=== PATIENT | male | born 1985 | race Caucasian/White ===

== ENCOUNTER 2020-05-27 10:40 | Emergency (ER) | payer SELFPAY ==
--- OUTSIDE RECORDS SUMMARY | 2020-05-27 10:44 | XMS REPORT | Continuity of Care Document ---
:1985 Author Organization [facility] t Address [address] [place] [address] Care Team Providers Name Role Phone Lab, Magno Rodney I Attending Clinician Unavailable Rosalinda Sullivan Attending Clinician Payers Payer Name Policy Type Policy Number Effective Date Expiration Date S ource Problems Condition Condition Condition Status Onset Resolution Last Treating Co mments Source Name Details Category Date Date Treatment Clinician Date PELVIC Diagnosis Active 2013-022014-02-02 Mem [facility]ria PAIN, FALL 03-26 11:22:00 l PELVIC 00:00: [place] PAIN, FALL 00 Active 01/23/2014 [facility] PAIN Diagnosis Active 2011-04-14 Mem[facility] 04-14 21:10:00 l CHEST 17:20: [place] PAIN 00 Active 04/14/2011 [facility] History of Past Illness Condition Condition Condition Status Onset Resolution Last Treating Co mments Source Name Details Category Date Date Treatment Clinician Date Discharge Problem 2013-022014-01-26 2014-01-26 [facility] Diagnosis: 2- 03:28:56 03:28:56 l Bruise, 06:00: [place] trunk Discharge 00 Diagnosis: Bruise, trunk 01/23/2014 01/26/2014 [facility] Allergies, Adverse Reactions, Alerts Allergy Allergy Status Severity Reaction(s) Onset Inactive Treating Comm ents Source Name Type Date Date Clinician [place] DA Active NE 2018- [facility] 2-14 [place] 00:00: e 00 [facility] No Known DA Active U [facility] 2-14 [place] Intolera 00:00: e nces 00 [facility] [place] DA Active NE 2015-02 [facility] 2- Clear 00:00: Marie 00 [facility] No Known DA Active U 2015-02 [facility] Drug 04-17 Clear Intolera 00:00: Marie nces 00 [facility] Social History Smoking Status Start Date Stop Date Source Social History [facility] Medications Ordered Filled Start Stop Current Ordering Indication Dosage Frequency Signature Comments Components Source Medication Medication Date Date Medication? Clinician (SIG) Name Name Acetaminoph 2013-02 Yes 1 - 2 tab, Memoria en 300 MG / 2-06 PO, Q4H, l Codeine 02:29: Pain, # 20 [facility] Phosphate 00 tab, 0 30 MG Oral Refill(s) Tablet [Tylenol with Codeine #3] naproxen Yes Yusef 500 mg, 1 M emoria 500 mg oral 2-25 Peña tab, PO, l enteric 04:35: Tsai BID, 20 Tate n coated 42 tab, tablet Substituti on Allowed, ECTAB Saline No Yusef 5 ml, Memoria Flush 0.9% 2-25 Peña Route: l 01:21: Tsai IVP, Drug Narciso 00 Form: INJ, PRN, PRN Line Flush, Start date: 04/14/11 19:21:00, Duration: 24 hr, Stop date: 04/15/11 19:20:00 Vital Signs Vital Name Observation Time Observation Value Comments Source Temperature Oral (F) 2014-01-24 02:53:00 98.8 F [facility] Diastolic (mm Hg) 2014-01-24 02:53:00 Mem o[facility] [place] Heart Rate 2014-01-24 02:53:00 [facility] [place] Systolic (mm Hg) 2014-01-24 02:53:00 [place] rial [place] Respitory Rate 2014-01-24 02:53:00 Memori al [place] Diastolic (mm Hg) 2014-01-24 00:31:00 Mem orial [place] Systolic (mm Hg) 2014-01-24 00:31:00 [place] rial [place] Heart Rate 2014-01-24 00:31:00 [facility] Respitory Rate 2014-01-24 00:31:00 Memori al [place] Systolic (mm Hg) 2014-01-23 23:25:00 [place] rial [place] Diastolic (mm Hg) 2014-01-23 23:25:00 Mem o[facility] [place] Weight 2014-01-23 23:25:00 [facility] [place] Height 2014-01-23 23:25:00 180.34 cm [facility] BMI Calculated 2014-01-23 23:25:00 [facility] [place] Temperature Oral (F) 2014-01-23 23:25:00 98.9 F [facility] Respitory Rate 2014-01-23 23:25:00 [facility] al [place] Heart Rate 2014-01-23 23:25:00 [facility] Weight 2011-04-15 00:29:00 [facility] Height 2011-04-15 00:29:00 182.88 cm [facility] [place] Procedures Procedure Date / Time Performed Performing Clinician [facility] e ACL - Reconstruction of [facility] anterior cruciate ligament Hernia repair [facility] Encounters Start End Encounter Admission Attending Care Care Encounter Source Date/Time Date/Time Type Type Clinicians Facility Department ID 2020-05-19 2020-05-19 Laboratory Lab, [facility] [id number] 16:57:21 17:17:21 Only Fam [facility] [id number] [place] [id number] Professio [phone] nal [facility] Office [address] 2020-03-10 2020-03-10 Laboratory Lab, [facility] [id number] 13:41:06 14:01:06 Only Fam [facility] I Health [id number] [place] [id number] Professio [phone] [place] [address] [address] 2020-02-29 2020-02-29 Laboratory Lab, [facility] [id number] 10:50:31 11:10:31 Only Fam Pob I Health [id number] [place] 4.2.7.2.686 [facility] [phone] nal 044 [address] 2017-03-20 2017-03-20 Outpatient [facility] [id number] 18:40:00 18:40:00 00 2014-01-23 2014-01-23 Outpatient [facility] [id number] 17:21:00 20:54:00 Naren Naser 02 Yousef Results Test Description Test Time Test Comments Results Result Comments Source CBC W/AUTO DIFF 2018-04-16 10:07:00 Test Item Value Reference Range Interpretation Comme nts WHITE BLOOD CELL (test code = WBC) 8.0 K/mm3 4.5-12.5 N RED BLOOD CELL (test code = RBC) 4.98 mill/mm3 4.0-5.8 N HEMOGLOBIN (test code = HGB) 15.1 gram/dL 13.0-17.5 N HEMATOCRIT (test code = HCT) 47.0 % 42.0-52.0 N MEAN CELL VOLUME (test code = MCV) 94.4 fL 80-98 N MEAN CELL HGB (test code = MCH) 30.3 picogram 27.0-33.0 N MEAN CELL HGB CONCETRATION (test code = MCHC) 32.1 gram/dL 33.0-36. 0 L RED CELL DISTRIBUTION WIDTH (test code = RDW) 12.1 % 11.6-16. 2 N RED CELL DISTRIBUTION WIDTH SD (test code = RDW-SD) 42.0 fL 37 .0-51.0 N PLATELET COUNT (test code = PLT) 237 K/mm3 150-450 N MEAN PLATELET VOLUME (test code = MPV) 10.9 fL 6.7-11.0 N NEUTROPHIL % (test code = NT%) 57.8 % 39.0-69.0 N IMMATURE GRANULOCYTE % (test code = IG%) 0.3 % 0.0-5.0 N LYMPHOCYTE % (test code = LY%) 30.2 % 25.0-55.0 N MONOCYTE % (test code = MO%) 8.2 % 0.0-10.0 N EOSINOPHIL % (test code = EO%) 2.4 % 0.0-5.0 N BASOPHIL % (test code = BA%) 1.1 % 0.0-1.0 H NUCLEATED RBC % (test code = NRBC%) 0.0 % 0-0 N NEUTROPHIL # (test code = NT#) 4.61 K/mm3 1.8-7.7 N IMMATURE GRANULOCYTE # (test code = IG#) 0.02 x10 3/uL 0-0.03 N LYMPHOCYTE # (test code = LY#) 2.41 K/mm3 1.0-5.0 N MONOCYTE # (test code = MO#) 0.65 K/mm3 0-0.8 N EOSINOPHIL # (test code = EO#) 0.19 K/mm3 0.0-0.5 N BASOPHIL # (test code = BA#) 0.09 K/mm3 0.0-0.2 N NUCLEATED RBC # (test code = NRBC#) 0.00 K/mm3 0.0-0.1 N MANUAL DIFF REQUIRED (test code = MDIFF) NO CBC W/AUTO [id number] 10:04:00 Test Item Value Reference Range Interpretation Comments WHITE BLOOD CELL (test code = K/mm3 4.5-12.5 WBC) RED BLOOD CELL (test code = RBC) mill/mm3 4.0-5.8 HEMOGLOBIN (test code = HGB) 15.1 gram/dL 13.0-17.5 N HEMATOCRIT (test code = HCT) 47.0 % 42.0-52.0 N MEAN CELL VOLUME (test code = fL 80-98 MCV) MEAN CELL HGB (test code = MCH) picogram 27.0-33.0 MEAN CELL HGB CONCETRATION (test gram/dL 33.0-36.0 code = MCHC) RED CELL DISTRIBUTION WIDTH % 11.6-16.2 (test code = RDW) RED CELL DISTRIBUTION WIDTH SD fL 37.0-51.0 (test code = RDW-SD) PLATELET COUNT (test code = PLT) K/mm3 150-450 MEAN PLATELET VOLUME (test code fL 6.7-11.0 = MPV) NEUTROPHIL % (test code = NT%) % 39.0-69.0 IMMATURE GRANULOCYTE % (test % 0.0-5.0 code = IG%) LYMPHOCYTE % (test code = LY%) % 25.0-55.0 MONOCYTE % (test code = MO%) % 0.0-10.0 EOSINOPHIL % (test code = EO%) % 0.0-5.0 BASOPHIL % (test code = BA%) % 0.0-1.0 NEUTROPHIL # (test code = NT#) K/mm3 1.8-7.7 LYMPHOCYTE # (test code = LY#) K/mm3 1.0-5.0 MONOCYTE # (test code = MO#) K/mm3 0-0.8 EOSINOPHIL # (test code = EO#) K/mm3 0.0-0.5 BASOPHIL # (test code = BA#) K/mm3 0.0-0.2 - CT ABD PELVIS [id number] 20:05:00 Name: GET ADAM [facility] : 1985 Age/S: 32 / M [address] [place] [address] Unit #: [id number] Loc: Jose De Jesus [id number] Phys: Mini Hicks NP Acct: [id number] Dis Date: Status: REG ER PHONE #: [phone] Exam Date: 04/04/20181924 FAX #: [phone] Reason: Severe LLQ abd pain, known hernia EXAMS: CPTCODE: [id number] CT ABD PELVIS W/CONT [address] CT ABDOMEN AND PELVIS WITH CONTRAST INDICATION: Severe LLQ abd pain, known hernia. TECHNIQUE: 100 mL Isovue-300 Intravenous contrast was administered followed by CT imaging of the abdomen and pelvis with axial, coronal and sagittal reconstructions. Radiation DLP 719 mGy-cm. COMPARISONS: Scrotal ultrasound 01/24/2014. Pelvis CT report without images dated 03/25/2018 FINDINGS: There is no acute osseous fracture or dislocation. There is mild gynecomastia. There is a small fat filled, noninflamed umbilical hernia. There is a tiny fat filled, noninflamed right inguinal hernia. There is a small fat filled, noninflamed left inguinal hernia. There are surgical changes of prior leftinguinal hernia repair. The aorta reveals no aneurysm or acute process. The inferior vena cava reveals no acute process. There is atelectasis within the dependent lungs. There is no acute hepatic process. The gallbladder and bile ducts reveal no acute process. The pancreas reveals no acute process. The spleen reveals no acute process. The adrenal glands reveal no acute process or mass. Thereare 3 small benign cysts in the inferior pole left kidney, the largest measures 0.8 cm. Thereare 2 benign cysts in the right kidney, the largest measures 1 cm in the midpole. No additional follow-up is required for these lesions. There is no acute renal process. The urinary bladder reveals no acute process. There is no acute reproductive structure abnormality. There is no intra-abdominal free fluid. There is no intra-abdominal PAGE 1 Signed Report (CONTINUED) Name: GET ADAM [facility] : 1985 Age/S: 32 / M [address] [place] [address] Blvd Unit #: [id number] Loc: [place] [address] Phys: Mini Hicks BOTTOM CAGER Acct: [id number] Dis Date:Status: REG ER PHONE #: [phone] Exam Date: 04/04/20181924 FAX #: [phone] Reason: Severe LLQ abd pain, known hernia EXAMS: CPT CODE: [id number] CT ABD PELVIS W/[place] [address] <Continued> free gas. There are several mesenteric lymph nodes measuring less than a centimeter caliber. There is a 1.1 x 1.4 cm mildly prominent right lower quadrant mesenteric lymph node on axial image 73. There scottie 1.2 x 1.6 cm lymph node in the central mesentery on axial image 63. There is no bowel obstruction. There is no bowel mucosal thickening or inflammation. There is mild nonacute colonic diverticulosis. There is no evidence of acute appendicitis. IMPRESSION: 1. There are several nonenlarged mesenteric lymph nodes that measure less than a centimeter short axis. There are 2 mildly prominent lymph nodes in the central mesentery and right lower quadrant mesentery, the largest measures 1.2 x 1.6 cm. The findings are nonspecific but could represent mesenteric adenitis or be reactive. A lymphoproliferative process is not entirely excluded. 2. There is a tiny fat filled, galo nflamed right inguinal hernia. There is a small fat filled, noninflamed left inguinal hernia. There are surgical changes of prior left inguinal hernia repair. 3. There is mild nonacute sigmoid and descending colonic diverticulosis. at 2005 Reported and signed by: Sahil Fisher D.O. CC: Mini Hicks NP Technologist:Maxwell Garcias, (R) CTDI: DLP: Trnscb Date/Time: 04/04/2018 (2004) [id number] Orig Print D/T: S: 04/04/2018 (2007) CTDI: DLP: PAGE 2 Signed Report HEPATIC FUNCTION [id number] 19:33:00 Test Item Value Reference Range Interpretation Comments TOTAL PROTEIN (test code = PROT) 7.9 g/dL 6.4-8.2 N ALBUMIN (test code = ALB) 3.90 g/dL 3.4-5.0 N BILIRUBIN TOTAL (test code = 0.30 mg/dL 0.0-1.0 N BILT) BILIRUBIN DIRECT (test code = < 0.10 MG/DL 0.0-0.30 N BILD) BILIRUBIN INDIRECT (test code = 0.20 MG/DL BILIND) SGOT/AST (test code = AST) 26 IUnit/L 15-37 N SGPT/ALT (test code = ALT) 40 IUnit/L 15-65 N ALKALINE PHOSPHATASE TOTAL (test 84 IUnit/L 20-125 N code = ALKP) [id number] 19:33:00 Test Item Value Reference Range Interpretation Comments LIPASE (test code = LIP) 136 IUnit/L 73-393 N CBC W/AUTO [id number] 19:29:00 Test Item Value Reference Range Interpretation Comments WHITE BLOOD CELL (test code = 9.82 x10 3/uL 4.5-11.0 N WBC) RED BLOOD CELL (test code = 4.95 x10 6/uL 4.00-5.60 N RBC) HEMOGLOBIN (test code = HGB) 15.5 g/dL 12.5-16.9 N HEMATOCRIT (test code = HCT) 47.9 % 37.5-50.7 N MEAN CELL VOLUME (test code = 96.8 fL 81.0-99.0 N MCV) MEAN CELL HGB (test code = MCH) 31.3 pg 27.0-33.0 N MEAN CELL HGB CONCETRATION 32.4 g/dL 33.0-37.0 L (test code = MCHC) RED CELL DISTRIBUTION WIDTH CV 11.9 % 11.5-14.5 N (test code = RDW) RED CELL DISTRIBUTION WIDTH SD 42.7 fL 37.0-54.0 N (test code = RDW-SD) PLATELET COUNT (test code = 275 x10 3/uL 150-400 N PLT) MEAN PLATELET VOLUME (test code 11.4 fL 7.0-9.0 H = MPV) NEUTROPHIL % (test code = NT%) 64.1 % 56.0-77.0 N IMMATURE GRANULOCYTE % (test 0.4 % 0.0-2.0 N code = IG%) LYMPHOCYTE % (test code = LY%) 25.1 % 14.0-32.0 N MONOCYTE % (test code = MO%) 7.5 % 4.8-9.0 N EOSINOPHIL % (test code = EO%) 2.1 % 0.3-3.7 N BASOPHIL % (test code = BA%) 0.8 % 0.0-2.0 N NUCLEATED RBC % (test code = 0.0 % 0-0 N NRBC%) NEUTROPHIL # (test code = NT#) 6.29 x10 3/uL 2.0-7.6 N IMMATURE GRANULOCYTE # (test 0.04 x10 3/uL 0.00-0.03 H code = IG#) LYMPHOCYTE # (test code = LY#) 2.46 x10 3/uL 1.0-3.8 N MONOCYTE # (test code = MO#) 0.74 x10 3/uL 0.1-0.8 N EOSINOPHIL # (test code = EO#) 0.21 x10 3/uL 0.0-0.2 H BASOPHIL # (test code = BA#) 0.08 x10 3/uL 0.0-0.2 N NUCLEATED RBC # (test code = 0.00 x10 3/uL 0.0-0.1 N NRBC#) MANUAL DIFF REQUIRED (test code NO = MDIFF) URINALYSIS [id number] 19:24:00 Test Item Value Reference Range Interpretation Comments UA COLOR (test code = COLU) YELLOW YEL/STRAW UA APPEARANCE (test code = SL CLOUDY CLEAR APPU) UA GLUCOSE DIPSTICK (test code NEGATIVE NEGATIVE = DGLUU) UA BILIRUBIN DIPSTICK (test NEGATIVE NEGATIVE code = BILU) UA KETONE DIPSTICK (test code NEGATIVE NEGATIVE = KETU) UA SPECIFIC GRAVITY (test code 1.023 1.005-1.030 N = SGU) UA BLOOD DIPSTICK (test code = NEGATIVE NEGATIVE JAY) UA PH DIPSTICK (test code = 5.0 5.0-7.0 N LEANDRO) UA PROTEIN DIPSTICK (test code NEGATIVE NEGATIVE = PROU) UA UROBILINIOGEN DIPSTICK 2.0 mg/dL 0.2-1.0 A (test code = URO) UA NITRITE DIPSTICK (test code NEGATIVE NEGATIVE = SWETHA) UA LEUKOCYTE ESTERASE DIPSTICK NEGATIVE NEGATIVE (test code = LEUU) UA WBC (test code = WBCU) 4-9 WBC/HPF 0-3 A UA RBC (test code = RBCU) 4-10 RBC/HPF 0-3 UA BACTERIA (test code = BACU) NONE SEEN /HPF NONE SEEN UA SQUAMOUS CELLS (test code = 0-5 /HPF NONE SEEN SQU) UA MUCUS (test code = MUCU) TRACE /LPF NONE SEEN COMMENTS: Clean CatchCHEMISTRY 8 [id number] 18:33:00 Test Item Value Reference Range Interpretation Comments ISTAT-SODIUM (test code = NAP) MMOL/L 134-147 ISTAT-POTASSIUM (test code = KP) MMOL/L 3.4-5.0 ISTAT-CHLORIDE (test code = CLP) MMOL/L 100-108 ISTAT CARBON DIOXIDE (test code = mmol/L 21-33 N ISTAT-CO2) ISTAT CALCIUM IONIZED (test code = MG/DL 1.12-1.32 ISTAT-CLAIRE) ISTAT-GLUCOSE (test code = GLUP) MG/DL 70-110 N ISTAT-BUN (test code = BUNP) MG/DL 7-18 N BEDSIDE CREATININE (test code = MG/DL 0.6-1.3 N CREATBED) GLOMERULAR FILTRATION RATE POC 91 ML/MIN (test code = GFRBED) CHEMISTRY 8 [id number] 18:33:00 Test Item Value Reference Range Interpretation Comments ISTAT-SODIUM (test 143 MMOL/L 134-147 N code = NAP) ISTAT-POTASSIUM (test 4.0 MMOL/L 3.4-5.0 N code = KP) ISTAT-CHLORIDE (test 105 MMOL/L 100-108 N Perform ed by code = CLP) certified opera tor at [facility] ISTAT CARBON DIOXIDE 29.0 mmol/L 21-33 N (test code = ISTAT-CO2) ISTAT CALCIUM IONIZED 1.21 MG/DL 1.12-1.32 N (test code = ISTAT-CLAIRE) ISTAT-GLUCOSE (test 102 MG/DL 70-110 N code = GLUP) ISTAT-BUN (test code = 15 MG/DL 7-18 N BUNP) BEDSIDE CREATININE 1.0 MG/DL 0.6-1.3 N (test code = CREATBED) GLOMERULAR FILTRATION 91 ML/MIN RATE POC (test code = GFRBED) [id number] 00:35:0011.9[facility] LwypccbZIAWGAMKCIHQ9586-00-70 00:35:87078Dxhbufyj YupedxsQRCVJICHPDWF5856-56-39 00:35:003.9[facility] PCSDPWFGGSQW4663-64-47 00:35:01263Obitqdfa FnftugiFSPIEODDEDSG8404-85-73 00:35:60838Ragtuzul EesaxqgBMBYMMCWHGRH7170-23-44 00:35:0024[facility] LDDFTGYHHPSY0023-19-83 00:35:009.1[facility] LcaphsoFOHSXJXWQZKK8496-97-75 00:35:0012[facility] QapwcokHXWGZRGWMINC8492-35-42 00:35:000.9[facility] RJJKTGSDREWW6115-41-88 00:35:0093[facility] ChhjqjdVXWKHWBRNT2110-68-56 00:35:00 34.6[facility] KtbmceeOQMEANJPMY9558-05-60 00:35:0012.5[facility] 2014-01-24 00:35:009.5[facility] BpojgkrUVQVJSOPXR0279-99-48 00:35:95387Tlpjvbbl TpdmalrBTZKPJYMIY8946-87-57 00:35:0090.6[facility] QliadhlSYSEFLLFVZ1672-76-19 00:35:00 Test Item Value Reference Range Interpretation Comments MCH (test code = MCH) 31.3 pg 27.0-31.0 [facility] DduwjfyHTBJIOZRXU7776-19-84 00:35:0015.4[facility] 2014-01-24 00:35:0044.4[facility] MisscbaLCFBOAAICL5476-10-16 00:35:004.91[facility] NzhmrxzYVGNCGCLHE6862-20-87 00:35:0010.1[facility] KhuumybJAVUPVSEMU0240-57-00 00:35:002.5[facility] ObxtbyrQRNECUYNBU1563-22-59 00:35:006.8[facility] SNNITUSWDP6102-95-53 00:35:000.6[facility] WcihwnwLHMOUOMQHI8128-31-85 00:35:000.1 [facility] RjvrdijODADYLJYNE4196-89-84 00:35:000.1[facility] 2014-01-24 00:35:000.9[facility] SozsqoyLSWSZSHIYL3807-18-86 00:35:0067.0[facility] LvsdbcbLVUEXRIFJT7087-22-56 00:35:001.4[facility] RxjftlnYXRLKKXYSU6339-66-39 00:35:0024.7[facility] WabvejtAZNVILKSGU3181-58-30 00:35:006.0[facility] HDGGJGRYR4837-55-36 02:10:009.1[facility] YuezlwaCOHYRQPTZ9959-60-86 02:10:008.3 [facility] JraqvyyKJTEDZEFH3380-26-83 02:10:0014[facility]Y 2011-04-15 02:10:004.3[facility] XzkfetiQOOBVZTYN7256-64-23 02:10:0041[facility] XtpgibfIDXZILAWO3607-89-17 02:10:000.5[facility] JypkeycQVGVHXGNZ0877-17-72 02:10:0076[facility] FpqrlqwBGXDCZVVZ1423-48-79 02:10:0088[facility] HQPUKSWXE4730-99-94 02:10:0011[facility] QqcfoufWSQOARATY5209-02-91 02:10:96198 [facility] SbekcnjLOSWZFBTK1906-66-71 02:10:0026[facility]ann[facility]Y 2011-04-15 02:10:001.0[facility] ZvetqjoMOGUASPNL7283-25-88 02:10:004.1[facility] YakhsfeLNREZVFCT6341-24-52 02:10:75323Fvcurdwa UoapfncEIMDLZFXI5993-14-00 02:10:004.0[facility] JxcvmduZUUAJKCEH9899-52-19 02:10:0011[facility] IRUMAXNIE5339-41-69 02:10:001.1[facility] EoiaagqFMIYMIXTH7554-23-32 02:10:0012.1 [facility] HudcollEIXHZZRFD7633-82-33 02:10:00<0.02[facility]ann[facility]STRY 2011-04-15 02:10:003.7[facility] JrvnxroYGLYWNCBAF7835-17-88 02:10:0015.4[facility] CpbqfxpDLXNPKKHWH6820-22-43 02:10:0044.2[facility] NesdoacRHIXMWDDYO0281-84-87 02:10:007.6[facility] BwiobtlFTHMSYTBAS0259-51-53 02:10:004.88[facility] OVCYLIKZRM1217-54-30 02:10:0012.2[facility] UwwmpgdMLBUXYUSZC7607-02-03 02:10:00 265[facility] MbnjimaXCHPQLREBK2281-11-58 02:10:00 Test Item Value Reference Range Interpretation Comments MCH (test code = MCH) 31.6 pg 27.0-31.0 H [facility] RoyzgwqCJTTIJZQYM9898-23-44 02:10:0034.9[facility]ann[facility]OLOGY 2011-04-15 02:10:0090.6[facility] FcueckuOFSZZSOTDT6024-76-87 02:10:009.0[facility] JokrvinYOEWDRWBMI0254-64-24 02:10:000.23[facility] MojvytkQDTIPFWPDL4732-97-76 02:10:004.emorial RzuiaalOTQCRISDAE7605-01-36 02:10:002.2[facility] QOQUAAXRWP8957-46-97 02:10:000.6[facility] PjaxyzbCBDRAUPGEI8211-58-04 02:10:000.1 [facility] WgizoawGSIWIEHOIT0486-66-39 02:10:000.1[facility]ann[facility]OLOGY 2011-04-15 02:10:0029.3[facility] SigktfeYBWHPJUZQT1623-27-24 02:10:0060.6[facility] ZcrzgzfYYDMKJYFGW4357-41-10 02:10:000.8[facility] NsmdlkjUZGULDUWIU0112-71-35 02:10:001.9[facility] HqqjmagALXQMZPIPR3381-53-72 02:10:007.4[facility]
--- NOTE | 2020-05-27 11:40 | RAD REPORT ---
EXAM DESCRIPTION: RAD - Elbow Left 3 View - 05/27/2020 11:29 am CLINICAL HISTORY: Left elbow pain status post trauma FINDINGS: Mildly displaced fracture of the radial head. No dislocation
--- NOTE | 2020-05-27 11:40 | RAD REPORT ---
EXAM DESCRIPTION: RAD - Wrist Left 3 View - 05/27/2020 11:33 am CLINICAL HISTORY: Left wrist pain status post injury FINDINGS: No fracture or dislocation is seen. If the patient continues to have symptoms to suggest an occult fracture then a followup plain film se sugar in 7 days would be recommended
--- NOTE | 2020-05-27 13:28 | EDPHYS ---
Physician Documentation [facility] Name: Reginald Noe Age: 34 yrs Sex: Male : 1985 Arrival Date: 05/27/2020 Time: 10:41 Bed 27 Private MD: ED Physician Michael Robbins HPI: 05/27 13:21 This 34 yrs old Male presents to ER via Ambulatory with complaints of Elbow jr8 Injury, Fall Injury. 13:21 The patient or guardian complains of decreased range of motion, pain. The complaints jr8 affect the left elbow. Context: The problem was sustained outdoors, resulted from a fall, on an outstretched hand. Onset: The symptoms/episode began/occurred acutely, today. Treatment prior to arrival includes: no previous treatment. Modifying factors: The symptoms are alleviated by nothing. the symptoms are aggravated by movement. Associated signs and symptoms: The patient has no apparent associated signs or symptoms. Severity of symptoms: At their worst the symptoms were moderate, in the emergency department the symptoms are unchanged. The patient has not experienced similar symptoms in the past. The patient has not recently seen a physician. Patient tripped outside falling on outstretched hand. Pain to elbow and wrist on left side since incident . Historical: - Allergies: 11:02 No Known Allergies; aa5 - Home Meds: 11:02 None [Active]; aa5 - PMHx: 11:02 None; aa5 - PSHx: 11:02 Hernia repair; L ACL; aa5 - Immunization history:: Last tetanus immunization: up to date. - Social history:: Smoking status: Patient denies any tobacco usage or history of. ROS: 13:21 Eyes: Negative for injury, pain, redness, and discharge, ENT: Negative for injury, jr8 pain, and discharge, Neck: Negative for injury, pain, and swelling, Cardiovascular: Negative for chest pain, palpitations, and edema, Respiratory: Negative for shortness of breath, cough, wheezing, and pleuritic chest pain, Abdomen/GI: Negative for abdominal pain, nausea, vomiting, diarrhea, and constipation, Back: Negative for injury and pain, Skin: Negative for injury, rash, and discoloration, Neuro: Negative for headache, weakness, numbness, tingling, and seizure. 13:21 MS/extremity: Positive for decreased range of motion, pain, tenderness, of the left arm. Exam: 13:24 Constitutional: This is a well developed, well nourished patient who is awake, alert, jr8 and in no acute distress. Cardiovascular: Regular rate and rhythm with a normal S1 and S2. No gallops, murmurs, or rubs. Normal PMI, no JVD. No pulse deficits. Respiratory: Lungs have equal breath sounds bilaterally, clear to auscultation and percussion. No rales, rhonchi or wheezes noted. No increased work of breathing, no retractions or nasal flaring. Skin: Warm, dry with normal turgor. Normal color with no rashes, no lesions, and no evidence of cellulitis. Neuro: Awake and alert, GCS 15, oriented to person, place, time, and situation. Cranial nerves II-XII grossly intact. Motor strength 5/5 in all extremities. Sensory grossly intact. Cerebellar exam normal. Normal gait. 13:24 Musculoskeletal/extremity: Extremities: grossly normal except: noted in the left elbow: decreased ROM, pain, tenderness, ROM: full active range of motion, in all extremities, limited passive range of motion, in the left arm, limited active range of motion due to pain, in the left arm, Circulation is intact in all extremities. Sensation intact. Vital Signs: 10:59 BP 155 / 109; Pulse 107; Resp 18 S; Temp 97.2(TE); Pulse Ox 98% on R/A; Weight 117.93 aa5 kg (R); Height 6 ft. 0 in. (182.88 cm) (R); 14:00 BP 124 / 81; Pulse 93; Resp 18 S; Pulse Ox 97% on R/A; aa5 10:59 Body Mass Index 35.26 (117.93 kg, 182.88 cm) aa5 Procedures: 13:24 Splinting: Splint applied to left arm using Orthoglass splint, applied by nurse. jr8 Examined by me, post splint application: neurovascular intact, 2+ distal pulses palpable, brisk capillary refill noted, Patient tolerated well. MDM: 13:07 Patient medically screened. jr8 13:24 Data reviewed: vital signs, nurses notes, radiologic studies, plain films. Data jr8 interpreted: Pulse oximetry: on room air is 98 %. Interpretation: normal. Counseling: I had a detailed discussion with the patient and/or guardian regarding: the historical points, exam findings, and any diagnostic results supporting the discharge/admit diagnosis, radiology results, the need for outpatient follow up, a orthopedic surgeon, to return to the emergency department if symptoms worsen or persist or if there are any questions or concerns that arise at home. 05/27 11:04 Order name: Elbow Left 3 View XRAY; Complete Time: 13:11 aa5 05/27 11:23 Order name: XRAY Wrist LEFT 3 view; Complete Time: 13:11 jr8 05/27 13:12 Order name: Splint - Elbow - Posterior; Complete Time: 14:13 jr8 Administered Medications: 13:36 Drug: TORadol 30 mg Route: IM; Site: right deltoid; aa5 14:30 Follow up: Response: No adverse reaction; Pain is decreased aa5 13:36 Drug: [place] (HYDROcodone-acetaminophen) 10 mg-325 mg 1 tabs Route: PO; aa5 14:30 Follow up: Response: No adverse reaction; Pain is decreased aa5 Disposition: 05/27/20 13:28 Discharged to Home. Impression: Radial Head Fracture left arm . - Condition is Stable. - Discharge Instructions: Radial Head Fracture. - Prescriptions for Ibuprofen 800 mg Oral Tablet - take 1 tablet by ORAL route every 12 hours As needed take with food; 20 tablet. Tylenol- Codeine #3 300-30 mg Oral Tablet - take 2 tablets by ORAL route every 4-6 hours As needed; 20 tablet. - Work release form, Medication Reconciliation Form, Thank You Letter, Antibiotic Education, Prescription Opioid Use form. - Follow up: Sohail Lowe MD; When: 5 - 6 days; Reason: Recheck today's complaints, Continuance of care, Re-evaluation by your physician. - Problem is new. - Symptoms have improved. Addendum: 05/29/2020 07:14 Co-signature as Attending Physician, Michael Robbins MD I agree with the assessment and k dr plan of care. Signatures: Dispatcher [employer] EDNJ Michael Robbins MD MD kdr Calderon, Audri RN RN aa5 Sahil Alaniz PA PA jr8 Corrections: (The following items were deleted from the chart) 05/27 14:57 13:28 05/27/2020 13:28 Discharged to Home. Impression: Radial Head Fracture left arm . aa5 Condition is Stable. Forms are Medication Reconciliation Form, Thank You Letter, Antibiotic Education, Prescription Opioid Use. Follow up: Sohail Lowe; When: 5 - 6 days; Reason: Recheck today's complaints, Continuance of care, Re-evaluation by your physician. Problem is new. Symptoms have improved. jr8
--- NOTE | 2020-05-27 13:28 | ER ---
Nurse's Notes [facility] Name: Reginald Noe Age: 34 yrs Sex: Male : 1985 Arrival Date: 05/27/2020 Time: 10:41 Bed 27 Private MD: Diagnosis: Radial Head Fracture left arm Presentation: 05/27 10:59 Chief complaint: Patient states: "I tripped over a parking block". Pt c/o pain to left aa5 elbow and reports abrasion to right elbow. Pt also c/o left big toe pain. Coronavirus screen: At this time, the client does not indicate any symptoms associated with coronavirus-19. Ebola Screen: Patient negative for fever greater than or equal to 101.5 degrees Fahrenheit, and additional compatible Ebola Virus Disease symptoms. Initial Sepsis Screen: Does the patient meet any 2 criteria? No. Patient's initial sepsis screen is negative. Does the patient have a suspected source of infection? No. Patient's initial sepsis screen is negative. Risk Assessment: Do you want to hurt yourself or someone else? Patient reports no desire to harm self or others. Onset of symptoms was May 27, 2020. 10:59 Acuity: EFFIE 4 aa5 10:59 Method Of Arrival: Ambulatory aa5 Historical: - Allergies: 11:02 No Known Allergies; aa5 - Home Meds: 11:02 None [Active]; aa5 - PMHx: 11:02 None; aa5 - PSHx: 11:02 Hernia repair; L ACL; aa5 - Immunization history:: Last tetanus immunization: up to date. - Social history:: Smoking status: Patient denies any tobacco usage or history of. Screenin:00 Abuse screen: Denies threats or abuse. Nutritional screening: No deficits noted. aa5 Tuberculosis screening: No symptoms or risk factors identified. Fall Risk Fall in past 12 months (25 points). Assessment: 13:00 General: Appears uncomfortable, Behavior is calm, cooperative. Pain: Complains of pain aa5 in left elbow. Neuro: Level of Consciousness is awake, alert, obeys commands, Oriented to person, place, time, situation. Cardiovascular: Capillary refill < 3 seconds is brisk in bilateral fingers. Respiratory: Airway is patent Respiratory effort is even, unlabored, Respiratory pattern is regular, symmetrical. GI: No signs and/or symptoms were reported involving the gastrointestinal system. : No signs and/or symptoms were reported regarding the genitourinary system. EENT: No signs and/or symptoms were reported regarding the EENT system. Derm: Skin is pink, warm \\T\\ dry. Abrasion noted to left elbow, dressed with gauze and Coban. Musculoskeletal: Reports pain in left elbow. 14:30 Reassessment: Patient is alert, oriented x 3, equal unlabored respirations, skin aa5 warm/dry/pink. Patient states feeling better. Patient states symptoms have improved. 14:55 Reassessment: Patient is alert, oriented x 3, equal unlabored respirations, skin aa5 warm/dry/pink. Patient states feeling better. Vital Signs: 10:59 BP 155 / 109; Pulse 107; Resp 18 S; Temp 97.2(TE); Pulse Ox 98% on R/A; Weight 117.93 aa5 kg (R); Height 6 ft. 0 in. (182.88 cm) (R); 14:00 BP 124 / 81; Pulse 93; Resp 18 S; Pulse Ox 97% on R/A; aa5 10:59 Body Mass Index 35.26 (117.93 kg, 182.88 cm) aa5 ED Course: 10:41 Patient arrived in ED. as 10:59 Arm band placed on. aa5 11:01 Triage completed. aa5 11:29 Elbow Left 3 View XRAY In Process Unspecified. EDMS 11:29 XRAY Wrist LEFT 3 view In Process Unspecified. EDMS 13:00 Patient has correct armband on for positive identification. Adult w/ patient. aa5 13:06 Agata Esquivel, RN is Primary Nurse. aa5 13:06 Sahil Alaniz PA is PHCP. jr8 13:06 Michael Robbins MD is Attending Physician. jr8 13:27 Sohail Lowe MD is Referral Physician. jr8 14:10 Orthoglass splint: posterior long arm splint applied to the left arm. Sling applied to dh4 left arm. 14:55 No provider procedures requiring assistance completed. Patient did not have IV access aa5 during this emergency room visit. Administered Medications: 13:36 Drug: TORadol 30 mg Route: IM; Site: right deltoid; aa5 14:30 Follow up: Response: No adverse reaction; Pain is decreased aa5 13:36 Drug: [place] (HYDROcodone-acetaminophen) 10 mg-325 mg 1 tabs Route: PO; aa5 14:30 Follow up: Response: No adverse reaction; Pain is decreased aa5 Outcome: 13:28 Discharge ordered by MD. aldrich 14:55 Discharged to home via wheelchair, with significant other. aa5 14:55 Condition: improved 14:55 Discharge instructions given to patient, significant other, Instructed on discharge instructions, follow up and referral plans. medication usage, Demonstrated understanding of instructions, follow-up care, medications, Prescriptions given X 2. 14:57 Patient left the ED. aa5 Signatures: Dispatcher [employer] EDMS Sepideh Alicea Audri, RN RN aa5 Sahil Alaniz PA PA jr8 Nader Huggins 4 Corrections: (The following items were deleted from the chart) 11:02 10:59 Temp 97.2F Temporal; 117.93 kg Reported; Height 6 ft. 0 in. Reported; BMI: 35.2; aa5 aa5 11:04 10:59 Chief complaint: Patient states: "I tripped over a parking block". Pt c/o pain to aa5 left elbow and reports wound to right elbow. Pt also c/o left big toe pain. aa5
[2020-05-27] MEDS ORDERED: KETOROLAC 30 MG/ML INJ ONE (13:50)
[2020-05-27] MEDS ORDERED: HYDROCODONE/APAP 10/325 TAB ONE (13:50)
[2020-05-28 01:43] VITALS: BP 155/109; TEMP 97.2; O2SAT 98
== END 2020-05-27 14:57 | disposition home or self-care (01) ==
LOC: ER 10:40
PROC: 2W3DX1Z Immobilization of Left Lower Arm using Splint (ICD-10-PCS; principal; 2020-05-27)
DX: S52.122A Displaced fracture of head of left radius, initial encounter for closed fracture (principal); W01.0XXA Fall on same level from slipping, tripping and stumbling without subsequent striking against object, initial encounter; Y93.01 Activity, walking, marching and hiking; Y92.89 Other specified places as the place of occurrence of the external cause
CPT/HCPCS: 96372; 99284

== ENCOUNTER 2021-06-17 09:22 | Emergency (ER) | payer OTHER, SELFPAY ==
--- OUTSIDE RECORDS SUMMARY | 2021-06-17 09:26 | XMS REPORT | Continuity of Care Document ---
:1985 Author Organization [facility] t Address [address] [place] [address] Care Team Providers Name Role Phone Unavailable Unavailable Unavailable Problems Condition Condition Condition Status Onset Resolution Last Treating Co mments Source Name Details Category Date Date Treatment Clinician Date PELVIC Diagnosis Active 2013-022014-02-02 Mem oria PAIN, FALL 03-26 11:22:00 l PELVIC 00:00: Narciso PAIN, FALL 00 Active 01/23/2014 [facility] CHEST PAIN Diagnosis Active 2011-04-14 Memoria 04-14 21:10:00 l CHEST 17:20: [place] PAIN 00 Active 04/14/2011 [facility] History of Past Illness Condition Condition Condition Status Onset Resolution Last Treating Co mments Source Name Details Category Date Date Treatment Clinician Date Discharge Problem 2013-022014-01-26 2014-01-26 Memoria Diagnosis: 2-05 03:28:56 03:28:56 l Bruise, 06:00: Narciso trunk Discharge 00 Diagnosis: Bruise, trunk 01/23/2014 01/26/2014 [facility] Allergies, Adverse Reactions, Alerts This patient has no known allergies or adverse reactions. Social History Smoking Status Start Date Stop Date Source Social History [facility] Medications Ordered Filled Start Stop Current Ordering [...] tab, tablet Substituti on Allowed, ECTAB Saline 2011- No Yusef 5 ml, Memoria Flush 0.9% -25 Peña Route: l 01:21: Tsai IVP, Drug Narciso 00 Form: INJ, PRN, PRN Line Flush, Start date: 04/14/11 19:21:00, Duration: 24 hr, Stop date: 04/15/11 19:20:00 Vital Signs Vital Name Observation Time Observation Value Comments Source Temperature Oral (F) 2014-01-24 02:53:00 98.8 F [facility] Diastolic (mm Hg) 2014-01-24 02:53:00 Mem orial N[facility] Heart Rate 2014-01-24 02:53:00 [facility] Systolic (mm Hg) 2014-01-24 02:53:00 Baldemar rial [place] Respitory Rate 2014-01-24 02:53:00 Memori al [place] Diastolic (mm Hg) 2014-01-24 00:31:00 Mem orial [place] Systolic (mm Hg) 2014-01-24 00:31:00 Baldemar rial [place] Heart Rate 2014-01-24 00:31:00 [facility] Respitory Rate 2014-01-24 00:31:00 Memori al [place] Weight 2014-01-23 23:25:00 [facility] Height 2014-01-23 23:25:00 180.34 cm [facility] BMI Calculated 2014-01-23 23:25:00 [facility] [place]arc[place] Temperature Oral (F) 2014-01-23 23:25:00 98.9 F [facility] Respitory Rate 2014-01-23 23:25:00 Memori al [place] Heart Rate 2014-01-23 23:25:00 [facility] [place] Systolic (mm Hg) 2014-01-23 23:25:00 Baldemar rial [place] Diastolic (mm Hg) 2014-01-23 23:25:00 Mem orial Narc[facility] Height 2011-04-15 00:29:00 182.88 cm [facility] Weight 2011-04-15 00:29:00 [facility] Procedures Procedure Date / Time Performed Performing Clinician [facility] e ACL - Reconstruction of [facility] anterior cruciate ligament Hernia repair [facility] Encounters Start End Encounter Admission Attending Care Care Encounter Source Date/Time Date/Time Type Type Clinicians Facility Department ID 2017-03-21 2017-03-21 Ambulatory [facility] [id number] Memoria 00:40:00 00:40:00 Pre-Reg r Care Clear 00 l [facility] 2014-01-23 2014-01-24 EC [facility]Fl[facility] [id number] Memoria 23:21:00 02:54:00 Emergency r [place] 02 l [facility] 2011-04-14 2011-04-14 Emergency nullFlavo [id number] Memoria 18:25:00 23:09:00 r [facility] 01 l [place] Results Test Description Test Time Test Comments Results Result Comments Source [facility] 2014-01-24 00:35:00 Test Item Value Reference Range Interpretation Comme nts CO2 (test code = CO2) 24 [facility]IO2327[facility]59-73 00:35:00 Test Item Value Reference Range Interpretation Comments Calcium Lvl (test code = Calcium Lvl) 9.1 8.5-10.5 [facility]DcoxcxrPMABGWRRYNTY9383-43-96 00:35:00 Test Item Value Reference Range Interpretation Comments BUN (test code = BUN) 12 -22 [facility]SyugpfqYWOUYZCOTUNB9628-88-16 00:35:00 Test Item Value Reference Range Interpretation Comments Creatinine Lvl (test code = Creatinine 0.9 0.5-1.4 Lvl) [facility]KiyrffqEJJTVLZPYQLY6949-87-20 00:35:00 Test Item Value Reference Range Interpretation Comments Glucose Lvl (test code = Glucose Lvl) 93 70-99 [facility]pzfaeuEOTHEWZMMS7574-21-52 00:35:00 Test Item Value Reference Range Interpretation Comments MCHC (test code = MCHC) 34.6 32.0-36.0 [facility] CenterItrfiixXUCNNWYPLI3690-33-11 00:35:00 Test Item Value Reference Range Interpretation Comments RDW (test code = RDW) 12.5 11.5-14.5 [facility] CenterDiapsgqWUAUDLJMOC6905-68-80 00:35:00 Test Item Value Reference Range Interpretation Comments MPV (test code = MPV) 9.5 7.4-10.4 [facility] CenterKyxrvruLVVWCZRFUF1860-04-07 00:35:00 Test Item Value Reference Range Interpretation Comments Platelet (test code = Platelet) 242 133-450 [facility] CenterXjwepalAOSCJGUNDG9318-14-24 00:35:00 Test Item Value Reference Range Interpretation Comments MCV (test code = MCV) 90.6 80.0-94.0 [facility] CenterXwoyyvlJBUKHUHUZE0298-80-50 00:35:00 Test Item Value Reference Range Interpretation Comments MCH (test code = MCH) 31.3 pg 27.0-31.0 [facility] CenterOhjuddlOEWXGGAYOS3864-41-03 00:35:00 Test Item Value Reference Range Interpretation Comments Hgb (test code = Hgb) 15.4 14.0-18.0 [facility] CenterFnuelnhVSRMGZZKJH5785-53-64 00:35:00 Test Item Value Reference Range Interpretation Comments Hct (test code = Hct) 44.4 42.0-54.0 [facility] CenterCnjeuxhVUMJCBPJNB9454-16-51 00:35:00 Test Item Value Reference Range Interpretation Comments RBC (test code = RBC) 4.91 4.70-6.10 [facility] CenterJqwhrbbWPMATYVPUK5542-02-98 00:35:00 Test Item Value Reference Range Interpretation Comments WBC (test code = WBC) 10.1 3.7-10.4 [facility] CenterHpdhtgjECZRPTVHCW6339-02-96 00:35:00 Test Item Value Reference Range Interpretation Comments Lymphocytes # (test code = Lymphocytes 2.5 1.0-5.5 #) [facility] CenterMxjjzbyNTOHLGSSWJ0287-25-19 00:35:00 Test Item Value Reference Range Interpretation Comments Segs-Bands # (test code = Segs-Bands #) 6.8 1.5-8.1 [facility] CenterYybpqibHTTGCJLTKX0674-98-32 00:35:00 Test Item Value Reference Range Interpretation Comments Monocytes # (test code 0.6 See_Comment [Aut omated message] The = Monocytes #) system which generated this result tra nsmitted reference range : <=0.8. The reference r abhijeet was not used to int erpret this result as normal/abnormal . [facility] CenterTrkwiqzOSVZWVSDGD2534-32-90 00:35:00 Test Item Value Reference Range Interpretation Comments Eosinophils # (test code 0.1 See_Comment [A utomated message] The = Eosinophils #) system whic h generated this result tra nsmitted reference range : <=0.5. The reference r abhijeet was not used to int erpret this result as normal/abnormal . [facility] CenterUglfwsmBYMCGKHUEE7419-24-84 00:35:00 Test Item Value Reference Range Interpretation Comments Basophils # (test code 0.1 See_Comment [Aut omated message] The = Basophils #) system which generated this result tra nsmitted reference range : <=0.2. The reference r abhijeet was not used to int erpret this result as normal/abnormal . [facility] CenterJlznohnZQOGZYLAGA3353-21-30 00:35:00 Test Item Value Reference Range Interpretation Comments Basophils (test code = 0.9 See_Comment [Aut omated message] The Basophils) system which ge nerated this result tra nsmitted reference range : <=1.0. The reference r abhijeet was not used to int erpret this result as normal/abnormal . [facility] CenterUkfntbtQPDKRRXHOC7820-53-95 00:35:00 Test Item Value Reference Range Interpretation Comments Segs (test code = Segs) 67.0 45.0-75.0 [facility] CenterGsseqlyGHHUXTPNVM7395-13-18 00:35:00 Test Item Value Reference Range Interpretation Comments Eosinophils (test code = 1.4 See_Comment [A utomated message] The Eosinophils) system which ge nerated this result tra nsmitted reference range : <=4.0. The reference r abhijeet was not used to int erpret this result as normal/abnormal . [facility] CenterIhdqyttKKCRRAGWEF3091-76-34 00:35:00 Test Item Value Reference Range Interpretation Comments Lymphocytes (test code = Lymphocytes) 24.7 20.0-40.0 [facility] CenterWeijifdMOQHDGLZHS0084-96-50 00:35:00 Test Item Value Reference Range Interpretation Comments Monocytes (test code = Monocytes) 6.0 2.0-12.0 [facility]BybzcbuZHHMVPEFWSLT4905-72-12 00:35:00 Test Item Value Reference Range Interpretation Comments AGAP (test code = AGAP) 11.9 10.0-20.0 [facility]OpnkkezNLNXOCXTSIPA6351-98-32 00:35:00 Test Item Value Reference Range Interpretation Comments eGFR (test code = eGFR) 114 [facility] HospitalYirpyorLNJTZYZTQACA2346-44-93 00:35:00 Test Item Value Reference Range Interpretation Comments Potassium Lvl (test code = Potassium 3.9 3.5-5.1 Lvl) [facility] HospitalIqgumfsIEEEXEMVSNXJ4098-83-31 00:35:00 Test Item Value Reference Range Interpretation Comments Sodium Lvl (test code = Sodium Lvl) 139 135-145 [facility]OdgzoxpQEIXVVPXAXGW1293-07-95 00:35:00 Test Item Value Reference Range Interpretation Comments Chloride Lvl (test code = Chloride Lvl) 107 95-109 [facility] HospitalZqfgkzpNGOUJOHXB5838-41-23 02:10:00 Test Item Value Reference Range Interpretation Comments Calcium Lvl (test code = Calcium Lvl) 9.1 8.5-10.5 N [facility] HospitalIqovhlwUHLSUPUAS0364-71-12 02:10:00 Test Item Value Reference Range Interpretation Comments Total Protein (test code = Total 8.3 6.4-8.4 N Protein) [facility] HospitalNvowhvjSOCCIHTSW8973-58-11 02:10:00 Test Item Value Reference Range Interpretation Comments AST (test code = AST) 14 See_Comment N [Auto mated message] The system which ge nerated this result transmit nelson reference range : <=37. The reference range was not used to interpr et this result as christelle l/abnormal. [facility] HospitalHeadzhkIPSOXRVKO4373-66-44 02:10:00 Test Item Value Reference Range Interpretation Comments Albumin Lvl (test code = Albumin Lvl) 4.3 3.5-5.0 N [facility] HospitalFwxdbtzWDSAHLXQU1316-12-96 02:10:00 Test Item Value Reference Range Interpretation Comments ALT (test code = ALT) 41 See_Comment N [Auto mated message] The system which ge nerated this result transmit nelson reference range : <=65. The reference range was not used to interpr et this result as christelle l/abnormal. [facility] HospitalDdqzxaaBHJEVRFJZ0356-93-20 02:10:00 Test Item Value Reference Range Interpretation Comments Bili Total (test code = Bili Total) 0.5 0.2-1.3 N [facility] HospitalJjnodsdPINBVVXAU5579-19-12 02:10:00 Test Item Value Reference Range Interpretation Comments Alk Phos (test code = Alk Phos) 76 39-136 N [facility] HospitalVbyzzobVKBDGOKLV1725-36-98 02:10:00 Test Item Value Reference Range Interpretation Comments Glucose Lvl (test code = Glucose Lvl) 88 [facility] HospitalIazsaofZTLURLRFG8655-10-09 02:10:00 Test Item Value Reference Range Interpretation Comments BUN (test code = BUN) 11 7-22 N [facility] HospitalUovkvbqJSVNAWIXL5113-75-60 02:10:00 Test Item Value Reference Range Interpretation Comments Chloride Lvl (test code = Chloride Lvl) 107 95-109 N [facility] HospitalVntpllbGZSIUUGSS3441-77-71 02:10:00 Test Item Value Reference Range Interpretation Comments CO2 (test code = CO2) 26 24-32 N [facility] HospitalNmmaotbKYXGDDWXK7758-79-31 02:10:00 Test Item Value Reference Range Interpretation Comments Creatinine Lvl (test code = Creatinine 1.0 0.5-1.4 N Lvl) [facility] HospitalRfjufjyMLYTGUTYV9875-36-03 02:10:00 Test Item Value Reference Range Interpretation Comments Potassium Lvl (test code = Potassium 4.1 3.5-5.1 N Lvl) [facility] HospitalOerxciyAUYIMGAXD8986-26-38 02:10:00 Test Item Value Reference Range Interpretation Comments Sodium Lvl (test code = Sodium Lvl) 141 135-145 N [facility] HospitalUuwkfeoYWOGEWEWP1148-34-42 02:10:00 Test Item Value Reference Range Interpretation Comments Globulin (test code = Globulin) 4.0 2.0-4.0 N [facility] HospitalOfmzggeICBWCKDHW3078-29-88 02:10:00 Test Item Value Reference Range Interpretation Comments B/C Ratio (test code = B/C Ratio) 11 6-25 N [facility] HospitalSsfgbvhQLYZPZJIZ2192-32-34 02:10:00 Test Item Value Reference Range Interpretation Comments A/G Ratio (test code = A/G Ratio) 1.1 0.7-1.6 N [facility] HospitalXmrmopgMOCAQUAZG1792-72-05 02:10:00 Test Item Value Reference Range Interpretation Comments AGAP (test code = AGAP) 12.1 10.0-20.0 N [facility] HospitalAfklrorXSNXYYRMV9202-20-56 02:10:00 Test Item Value Reference Range Interpretation Comments Troponin-I (test code no gt See_Comment N [Auto mated message] The = Troponin-I) system which g enerated this result transmit nelson reference range : <=0.40. The reference r abhijeet was not used to interpr et this result as christelle l/abnormal. [facility] HospitalMsrgoiwWWAZGNTQD1491-36-81 02:10:00 Test Item Value Reference Range Interpretation Comments CK MB (test code = CK MB) 3.7 0.5-3.6 H [facility] CenterFrtkichXTCNWIGDIH7843-53-62 02:10:00 Test Item Value Reference Range Interpretation Comments Hgb (test code = Hgb) 15.4 14.0-18.0 N [facility] CenterOeiwfmbFAYNSSIPSG2287-17-44 02:10:00 Test Item Value Reference Range Interpretation Comments Hct (test code = Hct) 44.2 42.0-54.0 N [facility] CenterAibnnejPSRPCDYWCA8251-40-93 02:10:00 Test Item Value Reference Range Interpretation Comments WBC (test code = WBC) 7.6 3.7-10.4 N [facility] CenterCqwivlmTQEIUCXQLU9961-99-06 02:10:00 Test Item Value Reference Range Interpretation Comments RBC (test code = RBC) 4.88 4.70-6.10 N [facility] CenterLoylrvwDSSYRAJTCR9774-48-06 02:10:00 Test Item Value Reference Range Interpretation Comments RDW (test code = RDW) 12.2 11.5-14.5 N [facility] CenterHcsdeojBZGFSLCGUW6302-53-26 02:10:00 Test Item Value Reference Range Interpretation Comments Platelet (test code = Platelet) 265 133-450 N [facility] CenterAudljxsKUMSWSTRRK7268-73-04 02:10:00 Test Item Value Reference Range Interpretation Comments MCH (test code = MCH) 31.6 pg 27.0-31.0 H [facility] CenterGixcrzuYVTCGGYOLK2821-40-28 02:10:00 Test Item Value Reference Range Interpretation Comments MCHC (test code = MCHC) 34.9 32.0-36.0 N [facility] CenterMetvruzIGYVKUPBQR2879-74-56 02:10:00 Test Item Value Reference Range Interpretation Comments MCV (test code = MCV) 90.6 80.0-94.0 N [facility] CenterVvclqjdUYDDDSGBBU3469-11-62 02:10:00 Test Item Value Reference Range Interpretation Comments MPV (test code = MPV) 9.0 7.4-10.4 N [facility] CenterMwbpiijHWAIQDSTJB6505-20-78 02:10:00 Test Item Value Reference Range Interpretation Comments D-Dimer (test code = D-Dimer) 0.23 [facility] CenterWaynrxzDRHUJZCIPR7396-66-63 02:10:00 Test Item Value Reference Range Interpretation Comments Segs-Bands # (test code = Segs-Bands #) 4.6 1.5-8.1 N [facility] CenterYsiuqrgXBSXIQIHNS6392-40-44 02:10:00 Test Item Value Reference Range Interpretation Comments Lymphocytes # (test code = Lymphocytes 2.2 1.0-5.5 N #) [facility] CenterDrjbilvTWQKEFMYRE1713-94-49 02:10:00 Test Item Value Reference Range Interpretation Comments Monocytes # (test code 0.6 See_Comment N [Aut omated message] The = Monocytes #) system which generated this result tra nsmitted reference range : <=0.8. The reference r abhijeet was not used to int erpret this result as normal/abnormal . [facility] CenterOrjpjncNWVJVZNDTN6963-23-66 02:10:00 Test Item Value Reference Range Interpretation Comments Eosinophils # (test code 0.1 See_Comment N [A utomated message] The = Eosinophils #) system whic h generated this result tra nsmitted reference range : <=0.5. The reference r abhijeet was not used to int erpret this result as normal/abnormal . [facility] CenterQnourimJPWMGTXKWJ0721-88-29 02:10:00 Test Item Value Reference Range Interpretation Comments Basophils # (test code 0.1 See_Comment N [Aut omated message] The = Basophils #) system which generated this result tra nsmitted reference range : <=0.2. The reference r abhijeet was not used to int erpret this result as normal/abnormal . [facility] CenterHaxkiivDTLGDHXQUR5442-64-77 02:10:00 Test Item Value Reference Range Interpretation Comments Lymphocytes (test code = Lymphocytes) 29.3 20.0-40.0 N [facility] CenterRgjilymHIUMMVXDZH2374-69-32 02:10:00 Test Item Value Reference Range Interpretation Comments Segs (test code = Segs) 60.6 45.0-75.0 N [facility] CenterVgmooghLCAHIWEYHX5692-23-61 02:10:00 Test Item Value Reference Range Interpretation Comments Basophils (test code = 0.8 See_Comment N [Aut omated message] The Basophils) system which ge nerated this result tra nsmitted reference range : <=1.0. The reference r abhijeet was not used to int erpret this result as normal/abnormal . [facility] CenterKkkonurEHQVJLUJSJ3141-59-45 02:10:00 Test Item Value Reference Range Interpretation Comments Eosinophils (test code = 1.9 See_Comment N [A utomated message] The Eosinophils) system which ge nerated this result tra nsmitted reference range : <=4.0. The reference r abhijeet was not used to int erpret this result as normal/abnormal . [facility] CenterKoexhysSHGQPSSJXI6528-41-29 02:10:00 Test Item Value Reference Range Interpretation Comments Monocytes (test code = Monocytes) 7.4 2.0-12.0 N [facility]
[2021-06-17] MEDS ORDERED: MORPHINE 4 MG/ML SYR ONE (09:53)
[2021-06-17] MEDS ORDERED: ONDANSETRON 4 MG/2 ML VIAL ONE (09:53)
[2021-06-17 10:03] LABS: Absolute Lymphocytes (CBC) 1.9 K/uL (0.7-4.9); Hematocrit 44.6 % (39.6-49.0); Lymphocytes % 31.4 % (15.3-44.8)
--- NOTE | 2021-06-17 10:10 | RAD REPORT ---
EXAM DESCRIPTION: RAD - Ankle Right 3 View - 06/17/2021 10:04 am CLINICAL HISTORY: PAIN COMPARISON: No comparisons FINDINGS: Mild lateral soft tissue swelling. No acute fracture or dislocation seen. Tiny calcaneal s purs.
[2021-06-17 10:17] LABS: BUN Blood Urea Nitrogen 13 mg/dL (7-18); Bicarbonate 23 mmol/L (21-32); Glucose Level 132 mg/dL (74-106); Potassium 3.9 mmol/L (3.5-5.1); Sodium Level 141 mmol/L (136-145)
--- NOTE | 2021-06-17 11:03 | RAD REPORT ---
EXAM DESCRIPTION: CT - Head C Spine Cap Adrian Mc - 06/17/2021 10:38 am CLINICAL HISTORY: Trauma, head and neck injury. Chest, abdomen and pelvis pain. head injury COMPARISON: No comparisons TECHNIQUE: CT head without contrast. CT cervical spine without contrast with coronal and sagittal reformatted images. CT chest, abdomen and pelvis with IV contrast (approximately 100 mL nonionic IV contrast) with mary l and sagittal reformatted images of the spine. All CT scans are performed using dose optimization technique as appropriate and may include automated exposure control or mA/KV adjustment according to patient size. FINDINGS: CT HEAD WITHOUT CONTRAST: No intracranial hemorrhage, hydrocephalus or extra-axial fluid collection. No areas of brain edema o r midline shift. The paranasal sinuses and mastoids are clear. The calvarium is intact. CT CERVICAL SPINE WITHOUT CONTRAST: No fracture or subluxation. The prevertebral soft tissues are normal in thickness. CT CHEST, ABDOMEN, PELVIS WITH CONTRAST: The lungs are clear.No pneumothorax or pericardial/pleural fluid. No evidence of intra-abdominal visceral injury, free fluid or free air. No concerning pelvic findings. No fractures. IMPRESSION: Negative for acute traumatic findings.
--- NOTE | 2021-06-17 12:13 | ER ---
Nurse's Notes [facility] Name: Reginald Noe Age: 35 yrs Sex: Male : 1985 Arrival Date: 06/17/2021 Time: 09:26 Bed 2 Private MD: Diagnosis: Concussion without loss of consciousness;Contusion of right ankle;Pain in right ankle and joints of right foot;Sprain of unspecified ligament of right ankle;Unspecified injury of head, initial encounter Presentation: 06/17 09:26 Chief complaint: EMS states: fell from ladder aprox 3-4ft hitting back of head and jh6 twisting rt ankle. - loc minimal swelling to rt ankle. Coronavirus screen: Vaccine status: Patient reports receiving the 2nd dose of the covid vaccine. Client denies travel out of the [place] in the last 14 days. Client indicates they have traveled out of the [place] in the last 14 days. Ebola Screen: Patient negative for fever greater than or equal to 101.5 degrees Fahrenheit, and additional compatible Ebola Virus Disease symptoms Patient denies exposure to infectious person. Patient denies travel to an Ebola-affected area in the 21 days before illness onset. Initial Sepsis Screen: Does the patient meet any 2 criteria? No. Patient's initial sepsis screen is negative. Does the patient have a suspected source of infection? No. Patient's initial sepsis screen is negative. Risk Assessment: Do you want to hurt yourself or someone else? Patient reports no desire to harm self or others. Onset of symptoms was June 17, 2021. 09:26 Method Of Arrival: EMS: [facility] 09:26 Acuity: EFFIE 3 [facility] 09:35 Care prior to arrival: Medication(s) given: toradol 30mg. [facility] Triage Assessment: 09:32 General: Appears in no apparent distress. comfortable, Behavior is calm, cooperative. [facility] Pain: Complains of pain in right ankle and anterior aspect of right ankle Pain currently is 6 out of 10 on a pain scale. Quality of pain is described as throbbing, Pain began suddenly, Aggravated by increased activity, repositioning. Historical: - Allergies: 09:31 No Known Allergies; jh6 - PMHx: 09:31 None; [facility] - Immunization history:: Adult Immunizations up to date, Client reports receiving the 2nd dose of the Covid vaccine. - Social history:: Smoking status: Patient denies any tobacco usage or history of. Screenin:36 Abuse screen: Denies threats or abuse. Nutritional screening: No deficits noted. jh6 Tuberculosis screening: No symptoms or risk factors identified. Fall Risk Gait- Impaired (20 pts.). Assessment: 09:55 General: Appears in no apparent distress. uncomfortable, Behavior is calm, cooperative, jd3 appropriate for age. Pain: Complains of pain in right ankle Quality of pain is described as sharp, tender, throbbing, Aggravated by increased activity, repositioning, weight bearing. Neuro: Level of Consciousness is awake, alert, obeys commands, Oriented to person, place, time, situation, Speech is normal, Pupils are PERRLA, Reports blurred vision on left eye on left peripheral.. Cardiovascular: Denies chest pain, Capillary refill < 3 seconds Patient's skin is warm and dry. Respiratory: Airway is patent Respiratory effort is even, unlabored, Respiratory pattern is regular, symmetrical, Denies cough, shortness of breath. GI: No signs and/or symptoms were reported involving the gastrointestinal system. : No signs and/or symptoms were reported regarding the genitourinary system. EENT: No signs and/or symptoms were reported regarding the EENT system. Derm: Skin is intact, Skin is dry, Skin is normal, Skin temperature is warm. Musculoskeletal: Circulation, motion, and sensation intact. Range of motion: limited in right ankle. 10:37 Reassessment: Patient appears in no apparent distress at this time. No changes from jd3 previously documented assessment. Patient and/or family updated on plan of care and expected duration. Pain level reassessed. Patient is alert, oriented x 3, equal unlabored respirations, skin warm/dry/pink. 11:54 Reassessment: Patient appears in no apparent distress at this time. No changes from jd3 previously documented assessment. Patient and/or family updated on plan of care and expected duration. Pain level reassessed. Patient is alert, oriented x 3, equal unlabored respirations, skin warm/dry/pink. 12:45 Reassessment: No changes from previously documented assessment. Patient and/or family 6 updated on plan of care and expected duration. Pain level reassessed. pt able to demonstrate crutch usage and reports no increased pain with ankle wrap. verbal understanding of d/c instructions and follow up if condition worsened. . Vital Signs: 09:26 BP 151 / 86; Pulse 74; Resp 17; Pulse Ox 100% ; Weight 127.01 kg; Height 5 ft. 11 in. jh6 (180.34 cm); Pain 6/10; 10:15 BP 127 / 84; Pulse 75; Resp 17; Pulse Ox 100% ; Pain 4/10; jh6 09:26 Body Mass Index 39.05 (127.01 kg, 180.34 cm) [facility] ED Course: 09:26 Patient arrived in ED. 6 09:26 Adia Mckenna, RN is Primary Nurse. jh6 09:31 Triage completed. jh6 09:34 Arm band placed on right wrist. jh6 09:36 Patient has correct armband on for positive identification. 6 09:38 Michael Robbins MD is Attending Physician. kdr 10:05 Ankle Right 3 View XRAY In Process Unspecified. EDMS 10:17 Inserted saline lock: 20 gauge in right antecubital area, using aseptic technique. jd3 Blood collected. 10:[address] jh6 10:39 CT Traumagram (Head C Spine CAP W Con) In Process Unspecified. EDMS 12:48 No provider procedures requiring assistance completed. jh6 12:48 Patient did not have IV access during this emergency room visit. 6 Administered Medications: 09:54 Drug: morphine 4 mg Route: IVP; Site: right antecubital; jd3 09:54 Drug: Zofran (Ondansetron) 4 mg Route: IVP; Site: right antecubital; jd3 Outcome: 12:12 Discharge ordered by . kdr 12:48 Discharged to home with crutches. jh6 12:48 Condition: good 12:48 Discharge instructions given to patient, family, Instructed on discharge instructions, follow up and referral plans. Demonstrated understanding of instructions, follow-up care, medications, wound care, crutch walking, splint care, Prescriptions given X 2. 12:49 Patient left the ED. [facility] Signatures: Dispatcher [employer] EDMS Michael Robbins MD MD kdr Davies, Jonathon, RN RN jAdia Angulo RN RN [facility] Corrections: (The following items were deleted from the chart) 10:38 09:55 Neuro: Level of Consciousness is awake, alert, obeys commands, Oriented to jd3 person, place, time, situation, Speech is normal, Pupils are PERRLA, jd3
--- NOTE | 2021-06-17 12:13 | EDPHYS ---
Physician Documentation [facility] Name: Reginald Noe Age: 35 yrs Sex: Male : 1985 Arrival Date: 06/17/2021 Time: 09:26 Bed 2 Private MD: ED Physician Michael Robbins HPI: 06/17 18:37 This 35 yrs old Male presents to ER via EMS with complaints of fall. kdr 18:37 . Patient fell off a short stepladder while reaching for a cord. He fell hitting the kdr back of his head and twisting his right ankle which was and in the latter that he was standing on. He currently complains of primarily pain to his right ankle with some swelling both medially and laterally but primarily medially. He has limited range of motion due to pain. His sensation is intact. There is no other surrounding injury. There is no erythema but just mild swelling to the ankle. He also complains of head pain with the area in the left occipital area identified as the potential area for impact. Patient is alert and oriented. He complains of only pain to his ankle the back of his head and some mild peripheral blurry vision. Onset: The symptoms/episode began/occurred suddenly, just prior to arrival. Severity of symptoms: At their worst the symptoms were mild moderate just prior to arrival, in the emergency department the symptoms are unchanged. The patient has not experienced similar symptoms in the past. The patient has not recently seen a physician. Historical: - Allergies: 09:31 No Known Allergies; jh6 - PMHx: 09:31 None; [facility] - Immunization history:: Adult Immunizations up to date, Client reports receiving the 2nd dose of the Covid vaccine. - Social history:: Smoking status: Patient denies any tobacco usage or history of. ROS: 18:37 Constitutional: Negative for fever, chills, and weight loss, Eyes: Negative for injury, kdr pain, redness, and discharge, ENT: Negative for injury, pain, and discharge, Neck: Negative for injury, pain, and swelling, Cardiovascular: Negative for chest pain, palpitations, and edema, Respiratory: Negative for shortness of breath, cough, wheezing, and pleuritic chest pain, Abdomen/GI: Negative for abdominal pain, nausea, vomiting, diarrhea, and constipation, Back: Negative for injury and pain, : Negative for injury, bleeding, discharge, and swelling, Skin: Negative for injury, rash, and discoloration, Neuro: Negative for headache, weakness, numbness, tingling, and seizure activity. Psych: Negative for depression, anxiety, suicide ideation, homicidal ideation, and hallucinations, Allergy/Immunology: Negative for hives, rash, and allergies, Endocrine: Negative for neck swelling, polydipsia, polyuria, polyphagia, and marked weight changes, Hematologic/Lymphatic: Negative for swollen nodes, abnormal bleeding, and unusual bruising. 18:37 MS/extremity: Positive for injury or acute deformity, decreased range of motion, of the right ankle, right Achilles and anterior aspect of right ankle. Exam: 18:37 Constitutional: This is a well developed, well nourished patient who is awake, alert, kdr and in no acute distress. Head/Face: Normocephalic, atraumatic but for very minor contusion and hematoma in the left occiput Eyes: Pupils equal round and reactive to light, extra-ocular motions intact. Lids and lashes normal. Conjunctiva and sclera are non-icteric and not injected. Cornea within normal limits. Periorbital areas with no swelling, redness, or edema. Neck: Trachea midline, no thyromegaly or masses palpated, and no cervical lymphadenopathy. Supple, full range of motion without nuchal rigidity, or vertebral point tenderness. No Meningismus. Chest/axilla: Normal chest wall appearance and motion. Nontender with no deformity. No lesions are appreciated. Cardiovascular: Regular rate and rhythm with a normal S1 and S2. No gallops, murmurs, or rubs. Normal PMI, no JVD. No pulse deficits. Respiratory: Lungs have equal breath sounds bilaterally, clear to auscultation and percussion. No rales, rhonchi or wheezes noted. No increased work of breathing, no retractions or nasal flaring. Abdomen/GI: Soft, non-tender, with normal bowel sounds. No distension or tympany. No guarding or rebound. No evidence of tenderness throughout. Back: No spinal tenderness. No costovertebral tenderness. Full range of motion. Skin: Warm, dry with normal turgor. Normal color with no rashes, no lesions, and no evidence of cellulitis. MS/ Extremity: Pulses equal, no cyanosis. Neurovascular intact. Full, normal range of motion. 18:37 Musculoskeletal/extremity: Extremities: grossly normal except: noted in the right ankle and anterior aspect of right ankle: decreased ROM, deformity, pain. Vital Signs: 09:26 BP 151 / 86; Pulse 74; Resp 17; Pulse Ox 100% ; Weight 127.01 kg; Height 5 ft. 11 in. jh6 (180.34 cm); Pain 6/10; 10:15 BP 127 / 84; Pulse 75; Resp 17; Pulse Ox 100% ; Pain 4/10; jh6 09:26 Body Mass Index 39.05 (127.01 kg, 180.34 cm) 6 MDM: 12:12 Patient medically screened. kdr 18:37 Data reviewed: vital signs, nurses notes, lab test result(s), radiologic studies. kdr Counseling: I had a detailed discussion with the patient and/or guardian regarding: the historical points, exam findings, and any diagnostic results supporting the discharge/admit diagnosis, lab results, radiology results, the need for outpatient follow up. 06/17 09:39 Order name: Basic Metabolic Panel; Complete Time: 11:02 [facility] 06/17 09:39 Order name: CBC with Diff; Complete Time: 11:02 [facility] 06/17 09:39 Order name: Type And Screen; Complete Time: 11:02 [facility] 06/17 09:39 Order name: CT Traumagram (Head C Spine CAP W Con); Complete Time: 11:35 [facility] 06/17 09:47 Order name: Ankle Right 3 View XRAY; Complete Time: 11:02 [facility] 06/17 09:39 Order name: Labs collected and sent; Complete Time: 09:54 [facility] 06/17 11:36 Order name: Crutches; Complete Time: 12:42 kdr 06/17 11:36 Order name: Aircast Ankle Splint; Complete Time: 12:42 kdr Administered Medications: 09:54 Drug: morphine 4 mg Route: IVP; Site: right antecubital; jd3 09:54 Drug: Zofran (Ondansetron) 4 mg Route: IVP; Site: right antecubital; jd3 Disposition Summary: 06/17/21 12:12 Discharge Ordered Location: Home kdr Problem: new kdr Symptoms: have improved kdr Condition: Stable kdr Diagnosis - Concussion without loss of consciousness kdr - Contusion of right ankle kdr - Pain in right ankle and joints of right foot kdr - Sprain of unspecified ligament of right ankle kdr - Unspecified injury of head, initial encounter kdr Followup: kdr - With: Private Physician - When: 2 - 3 days - Reason: If symptoms return, Further diagnostic work-up, Recheck today's complaints, Continuance of care, Re-evaluation by your physician Discharge Instructions: - Discharge Summary Sheet kdr - Joint Pain kdr - Concussion, Adult, [id number] kdr - Head Injury, Adult, [id number] kdr - Ankle Pain kdr - Ankle Sprain, [id number] kdr - Paresthesia, [id number] kdr Forms: - Medication Reconciliation Form kdr - Thank You Letter kdr - Prescription Opioid Use kdr - Work release form eb Prescriptions: - Ibuprofen 800 mg Oral Tablet - take 1 tablet by ORAL route every 8 hours As needed take with food; 30 tablet; kdr Refills: 0, Product Selection Permitted - Tramadol 50 mg Oral Tablet - take 1 tablet by ORAL route every 8 hours as needed at night; 12 tablet; kdr Refills: 0, Product Selection Permitted Signatures: Dispatcher [employer] Michael Chua MD MD kdr Too Ryder, RN RN jd3 Adia Mckenna RN RN jh6
[2021-06-17 12:55] VITALS: O2SAT 100
[2021-06-17 12:56] VITALS: BP 127/84
== END 2021-06-17 12:49 | disposition home or self-care (01) ==
LOC: ER 09:22
DX: S06.0X0A Concussion without loss of consciousness, initial encounter (principal); S93.401A Sprain of unspecified ligament of right ankle, initial encounter; S90.01XA Contusion of right ankle, initial encounter; M25.571 Pain in right ankle and joints of right foot; W11.XXXA Fall on and from ladder, initial encounter
CPT/HCPCS: 85025; 80048; 36415; 86900; 86850; 86901; 70450; 72125; 71260; 74177; 73610; 96375; 96374; 99284; Q9967; J2405